=== PATIENT | female | born 1960 | race Caucasian/White ===

== ENCOUNTER → 2021-03-15 09:54 | Outpatient (CLI) | payer OTHER, SELFPAY ==
[2021-03-15 10:19] LABS: COVID19 -Nasal RAPID Negative (Negative)
== END ==
PROVIDERS: Visit Provider Surgery
DX: Z20.822 Contact with and (suspected) exposure to COVID-19 (principal)
CPT/HCPCS: 87635; C9803

== ENCOUNTER 2021-03-16 06:36 | Day surgery (SDC) | payer OTHER, SELFPAY ==
[2021-03-16 07:13] VITALS: BP 129/85; PULSE 99; TEMP 37.1; O2SAT 16; BMI 40.7
[2021-03-16] MEDS: SODIUM CHLORIDE 0.9% 1,000 ML 200 ML IV (07:24)
--- NOTE | 2021-03-16 07:30 | PM.HP.1 ---
History of Present Illness History of Present Illness Date Patient Seen: 03/16/21 Time Patient Seen: 07:30 Chief complaint: SCREENING COLONOSCOPY Narrative: This is a 60-year-old woman with morbid obesity (BMI 40) who is here for screening colonoscopy. She had a colonoscopy 10 years ago which she reports was essentially normal with no significant findings. She denies any new symptoms specifically denies melena, hematochezia, unexplained abdominal pain, unexplained weight loss. 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 ROS Thirteen system review is otherwise negative other than as mentioned below and in HPI. PE: GENERAL: Well groomed and cooperative. Morbidly obese. Appears stated age. Answers questions promptly and appropriately. Vital signs noted. HENT: Normocephalic, atraumatic. Hearing intact. EYES: Conjunctiva pink, sclera white, no periorbital swelling. CARDIOVASCULAR: Regular rate. No pedal edema. RESPIRATORY: Non-tachypneic, breathing comfortably on room air. GASTROINTESTINAL: Abdomen soft and non-distended GENITALURINARY: No flank tenderness. MUSCULOSKELETAL: Equal tone and mass bilaterally. SKIN: Warm, dry, soft, appropriate color for ethnicity. No other lesions, rashes, or wounds. NEURO: Alert and Oriented X 3. No gross sensory deficits, or cognitive issues. PSYCH: Appropriate affect and mood. Patient History Family & Social History Social History: household members spouse,children Tobacco & Substance use: Smoking Status Never smoker alcohol intake current alcohol intake frequency holiday/special occasion Substance Use Type does not use Meds Home Medications and Allergies Home Medications Medication Instructions Recorded Confirmed Type cyclobenzaprine 10 mg PO BEDTIME 03/16/21 03/16/21 History lisinopril 20 mg PO DAILY 03/16/21 03/16/21 History Allergies Allergy/AdvReac Type Severity Reaction Status Date / Time No Known Drug Allergies Allergy Verified 03/16/21 07:11 Exam Vital Signs (past 8 hours): - 03/16/21 07:13 Temperature 98.7 F Pulse Rate 99 H Blood Pressure 129/85 Pulse Oximetry 16 L Oxygen Delivery Method Room Air Oxygen Flow Rate 97 Assessment & Plan Assessment and plan (1) At average risk for colon cancer: Status: Acute (2) Morbid obesity: Status: Acute Assessment & Plan narrative: Risks and benefits of screening colonoscopy and possible polypectomy were discussed with the patient including risk of bleeding, perforation, need for additional procedures, risks of anesthesia. The patient desires to proceed with the colonoscopy procedure. COVID-19 COVID-19 status: Negative Result date/Date tested (Pos, Neg/Pending): 03/15/21 Time Spent With Patient Time with patient: 15-24 minutes Quality VTE Deep Vein Thrombosis/Pulmonary Embolism Present on Admission: No
--- NOTE | 2021-03-16 07:34 | P.OP.ENDO_ITS ---
Operative Date/Time/Diagnoses Date of procedure: 03/16/21 Time of procedure: 07:34 Pre-op diagnosis: Average risk for colon cancer, due for screening colonoscopy Procedure & Clinicians Study performed: Colonoscopy Procedural sedation performed by the endoscopist Same procedure as scheduled: Yes Indications: Average risk for colon cancer, due for screening colonoscopy Surgeon: Angie Guillen Procedure Notes SCOAP/Timeout: Performed Procedure in detail: The patient was brought to the room and placed in left lateral decubitus position with all bony prominences padded. A time-out was performed and then the patient was given procedural sedation starting with 4 mg of Versed and 100 mcg of fentanyl. An additional 2 mg of Versed and 50 micro g of fentanyl were given during the procedure. Vitals were monitored throughout the procedure and remained stable. Once adequately sedated, the procedure was begun. A rectal exam was performed revealing no abnormalities. The colonoscope was then introduced to the rectum and advanced to the cecum in the usual fashion. The cecum was identified by the appendiceal orifice, the mucosal tri- fold, and the ileocecal valve. The scope was then retracted while rotating side to side and examining each mucosal fold. At the conclusion of the procedure retroflexion was performed and small grade 1-2 internal hemorrhoids without stigmata of bleeding were seen. The scope was then withdrawn from the rectum the procedure was concluded. The patient tolerated the procedure well and was transferred to the PACU in stable condition. Scope withdrawal time: 6 Sedation minutes: 19 Specimen(s): none sent Complications: none Impression: No polyps Post-procedure Recommendations: Colonscopy in 10 years Follow up: as needed Disposition: PACU
[2021-03-16] MEDS: MIDAZOLAM 5 MG/5 ML VIAL IV (07:47)
[2021-03-16] MEDS: fentaNYL 250 MCG/5 ML INJ IV (07:48)
[2021-03-16 08:06] VITALS: BP 104/66; PULSE 88; RESP 12; TEMP 36.8; O2SAT 100
[2021-03-16 08:12] VITALS: BP 101/64; PULSE 84; RESP 22; O2SAT 97
[2021-03-16 08:16] VITALS: BP 105/69; PULSE 89; RESP 18; TEMP 36.6; O2SAT 99
[2021-03-16 08:19] VITALS: BP 101/62; PULSE 91; RESP 18; TEMP 36.6; O2SAT 97
== END 2021-03-16 08:33 | disposition home or self-care (01) ==
LOC: ENDO 06:38
PROVIDERS: PCP Nurse Practitioner Family; Referring Provider Nurse Practitioner Family; Visit Provider Surgery
PROC: 0DJD8ZZ Inspection of Lower Intestinal Tract, Via Natural or Artificial Opening Endoscopic (ICD-10-PCS; CPT 45378; principal; 2021-03-16 07:45)
DX: Z12.11 Encounter for screening for malignant neoplasm of colon (principal); E66.01 Morbid (severe) obesity due to excess calories; K64.0 First degree hemorrhoids
CPT/HCPCS: 45378; 99152; J2250; J3010